=== PATIENT | female | born 1970 | race Caucasian/White ===

== ENCOUNTER → 2020-09-03 | Outpatient (CLI) | payer OTHER ==
--- NOTE | 2020-09-03 18:40 | RAD ---
Exam performed: Bilateral knees 2 views. HISTORY: Bilateral knee pain. DATE OF SERVICE: 09/03/2020. COMPARISON: None available FINDINGS: AP and lateral views of bilateral knees is obtained. There are mild to moderate narrowing of bilatera l medial and lateral tibiofemoral as well as patellofemoral joints. There is no acute fracture or dis location. Diffuse soft tissue swelling and calcifications are seen. 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 No acute abnormality seen. Electronically signed by: Clementine Ashford MD (09/03/2020 6:38 PM) [facility]
== END ==
LOC: RAD 12:53
PROVIDERS: ATTEND Surgery
DX: M17.0 Bilateral primary osteoarthritis of knee (principal); E66.01 Morbid (severe) obesity due to excess calories; M79.89 Other specified soft tissue disorders; M25.862 Other specified joint disorders, left knee; M25.861 Other specified joint disorders, right knee
CPT/HCPCS: 73560